=== PATIENT | male | born 1975 | race Caucasian/White ===

== ENCOUNTER 2022-04-22 20:45 | Emergency (ER) | payer OTHER ==
[~2022-04-22] VITALS: Ht 172.7 cm; Wt 86.2 kg
--- NOTE | 2022-04-22 20:48 | NUR ---
PT W/C ASSISTED TO BED 3
[2022-04-22 20:49] VITALS: BP 143/91
--- NOTE | 2022-04-22 20:52 | NUR ---
Dr. Beckham examining patient.
[2022-04-22] MEDS ORDERED: LORazepam 2 MG/ML VIAL IVP ONE (21:00)
[2022-04-22] MEDS ORDERED: NACL 0.9% 1,000 ML IV ONE (21:00)
--- NOTE | 2022-04-22 21:05 | NUR ---
Pt BIB family to ED with a history of anxiety (takes medication but cannot recall the name), who presents to the ED for an evaluation of chest pain that began today at approximately 2030 after smoking marijuana for the first time. His states he had three puffs before he developed chest pain. He reports associated tongue numbness. He does not have any exacerbating or alleviating factors
[2022-04-22 21:07] LABS: BASOPHILS % (AUTO) 0.2 % (0.0-2.0); EOSINOPHILS # (AUTO) 0.3 K/uL (0-0.4); EOSINOPHILS % (AUTO) 3.5 % (0.0-4.0); HEMATOCRIT 41.2 % (36-52); LYMPHOCYTES # (AUTO) 4.4 K/uL (2.0-11.5); LYMPHOCYTES % (AUTO) 53.3 % (20.5-51.1); MEAN CORPUSCULAR HEMOGLOBIN 28 pg (27-31); MEAN CORPUSCULAR HGB CONC 34 g/dL (33-37); MEAN CORPUSCULAR VOLUME 82.7 fL (80-94); MONOCYTES # (AUTO) 0.6 K/uL (0.8-1.0); MONOCYTES % (AUTO) 6.9 % (1.7-9.3); NEUTROPHILS % (AUTO) 36.1 % (42.2-75.2); PLATELET COUNT (AUTO) 240 K/uL (140-450); RED BLOOD CELL COUNT(AUTO) 4.98 MIL/uL (4.20-6.10); WHITE BLOOD COUNT (AUTO) 8.2 K/uL (4.8-10.8)
[2022-04-22 21:28] LABS: ALBUMIN 4.4 g/dL (3.4-5.0); ANION GAP 16.9 (8-16); ASPARTATE AMINOTRANSFERASE 21 U/L (15-37); CARBON DIOXIDE 23.8 mmol/L (21-32); CHLORIDE 104 mmol/L (98-107); GFR ARICAN-AMERICAN 104 mL/min (>90); GLUCOSE 143 mg/dL (74-106); SODIUM SERUM 142 mmol/L (136-145); TOTAL BILIRUBIN 0.3 mg/dL (0.0-1.0); UREA NITROGEN, BLOOD 18 mg/dL (7-18)
[2022-04-22 21:30] LABS: POTASSIUM 2.7 mmol/L (3.5-5.1)
[2022-04-22] MEDS ORDERED: POTASSIUM CHLORIDE 10 MEQ TABER PO ONE (21:35)
[2022-04-22] MEDS ORDERED: POTASSIUM CHL 20 MEQ/NACL 0.9% 1,000 ML IV ONE (21:35)
[2022-04-22] MEDS ORDERED: POTA10TA70 PO (21:40)
--- NOTE | 2022-04-22 22:15 | NUR ---
With family at bedside, pt verbalized IVF and medication made him feel a lot better
[2022-04-22 23:18] VITALS: BP 136/87
--- NOTE | 2022-04-22 23:18 | NUR ---
Patient discharged with v/s stable. Written and verbal after care instructions given and explained. Patient verbalized understanding. Ambulatory with steady gait. All questions addressed prior to discharge. Advised to follow up with PMD.
--- NOTE | 2022-04-25 08:19 | NUR ---
LATE ENTRY -- CONFIRMED WITH NURSE NS INFUSION COMPLETED AT 2200 04/22/22 AND NS/POTASSIUM INFUSION ENDED AT 2300 SAME DAY.
== END 2022-04-22 23:18 | disposition home or self-care (01) ==
LOC: MED 20:45
DX: F12.929 Cannabis use, unspecified with intoxication, unspecified (principal); E87.6 Hypokalemia; F41.9 Anxiety disorder, unspecified
CPT/HCPCS: 36415; 71045; 80053; 84484; 85025; 93005; 96361; 96374; 99291; J2060; J7030; Q0092